=== PATIENT | female | born 1995 | race Caucasian/White ===

== ENCOUNTER 2022-07-20 07:33 | Inpatient (IN) ==
--- NOTE | 2022-07-20 08:38 | Obstetrical Progress Note ---
Date of Service July 20, 2022 Assessment & Plan (1) Irregular contractions: Plan monitor and recheck in a couple of hours. Not sure in labor at this point. fetus category one. Subjective Patient notes contractions since 1:30am. Notes since here may have spaced a bit. Notes some slight blood tinged d/c. no lof. Good fm. Physical Exam Physical Exam: cx--1-2/75/-2 toco--q3-6min efm--130s with mod variability, accels to 160s, no decels Results & Data ([facility]) Vital Signs (Past 12 Hours) Vital Signs Temp Pulse Resp BP 07/20/22 08:00 37 C 107 H 18 116/65 07/20/22 07:40 107 H 116/65 PG Care Time/CCT Total # of Minutes Spent Total Time Spent with Patient: Total time spent is greater than 50% in coordination of care (as documented) at patient's floor/unit and/or counseling patient: Coding Level of Care Code 01419 Office/Outpt Visit, Est Diagnoses Irregular contractions O47.9
[2022-07-20] MEDS ORDERED: LIDOCAINE 1% LOCAL 20 ML VIAL INFIL PRN (09:43)
[2022-07-20] MEDS ORDERED: OXYTOCIN 30 UNITS/500 ML BAG IV PRN ×2 (09:43→17:30)
--- NOTE | 2022-07-20 09:45 | History & Physical Report ---
Date of Service July 20, 2022 Assessment & Plan (1) with 39 completed weeks gestation: (2) SROM (spontaneous rupture of membranes): Plan admit, expectantly manage. pitocin if indicated. fetus category one. anticipate . History of Present Illness Chief Complaint: rom Primary Care Provider: ELMER Mota Patient carmelita [id number] with iup at 39 1/7 weeks who presents to labor and delivery with contractions. while monitoring, she underwent srom for ? thin mec. Notes good fm. and Delivery Plans has had covid vaccine and booster. Rubella jnt-jurxgw-memqs MRR PP OB Labs: Blood Type O Positive 12/20/21 Antibody Screen NEGATIVE 12/20/21 Hemoglobin 11.5 g/dl (12.0-16.0) L 05/03/22 Hematocrit 34.0 % (34.1-44.9) L 05/03/22 Mean Corpuscular Volume 82.9 fL (80-100) 12/20/21 Platelet Count 259 K/uL (130-400) 12/20/21 Rubella IgG Antibody Non Immune (Immune) L 12/20/21 Rapid Plasma Reagin Nonreactive (Nonreactive) 12/20/21 Hepatitis B Surface Antigen. NON-REACTIVE (NON-REACTIVE) 12/20/21 Hepatitis C Antibody (EIA) NON-REACTIVE (NON-REACTIVE) 12/20/21 HIV (1&2) Ag and Ab Confirmation NON-REACTIVE (NON-REACTIVE) 12/20/21 Glucose 1 Hour 50 gm Load 117 mg/dl (70-130) 05/03/22 OB Optional Labs: Chlamydia trachomatis RNA NOT DETECTED (NOT DETECTED) 12/20/21 Neisseria gonorrhoeae RNA NOT DETECTED (NOT DETECTED) 12/20/21 Labs Reviewed: cf/sma-negative--mln cfdna-low risk--mln GBS negative Allergies Allergy/AdvReac Type Severity Reaction Status Date / Time No Known Allergies Allergy Verified 07/20/22 08:00 Home Medications Medication Instructions Recorded Confirmed Type prenat.vits,cherelle,wxo-msxn-bubdm 1 tab PO QAM 07/14/21 07/20/22 History sertraline 25 mg tablet (Zoloft) 50 mg PO QPM 07/14/21 07/20/22 History Tums 500 mg PO Q6 PRN Heartburn 07/20/22 07/20/22 History Patient History Medical History Anxiety Atypical squamous cells of undetermined significance (ASCUS) on Papanicolaou smear of cervix Depression HPV (human papilloma virus) infection Swelling of vagina Varicella vaccination Surgical History History of wisdom tooth extraction Family History Grandfather (Paternal) Diabetes Grandfather (Maternal) Cancer unknown type Father Hypercholesteremia Other No family history of adverse response to anesthesia Denies family history of Ovarian cancer Prostate cancer Breast cancer Lung cancer Colorectal cancer Hypertension Uterine cancer Social History Smoking Status: Never smoker Second Hand Exposure: No; Hx Alcohol Use: Yes Alcohol type: beer, wine and hard liquor Hx Substance Use: No Preferred Language: Albanian Communication Ability: Effective Envelope Adjuster Required: No Beliefs That Will Affect Care: None marital status: marital status details: Parker Chen (26) [phone] Current Living Situation: Spouse Current Living Situation Comment: lives with FOB, dog current occupational status: employed 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 Feels Safe at Home: Yes Safety Concerns: Feels Safe At This Time Assistive Devices: None OB History G1--sab VASCULAR NURSE History noncontributory Physical Exam Constitutional: WD/WN, vitals as above Gastrointestinal (Abdomen): soft, gravid, nt Psychiatric: A+Ox3, euthymic affect Genitourinary: cx--/90/-2 sse--gross rupture, difficult to tell if some old blood or thin mec toco--q2-4min efm--130s wtih mod variability, accels to 150s, no decels Results & Data ([facility]) Vital Signs (Past 12 Hours) Vital Signs Temp Pulse Resp BP 07/20/22 08:00 37 C 107 H 18 116/65 07/20/22 07:40 107 H 116/65 Coding Level of Care Code None Diagnoses with 39 completed weeks gestation Z3A.39 SROM (spontaneous rupture of membranes)
[2022-07-20 09:59] LABS: Hemoglobin 12.1 g/dl (12.0-16.0); Mean Corpuscular Hemoglobin 28.3 pg (25.0-34.0); Mean Corpuscular Hgb Conc 33.6 g/dL (32.0-36.0); Mean Corpuscular Volume 84.1 fL (80.0-100.0); Mean Platelet Volume 10.2 fL (9.4-12.3); Platelet Count 225 K/uL (130-400); RDW Coefficient of Variation 13.2 % (11.5-14.5); RDW Standard Deviation 39.9 fL (36.4-46.3); Red Blood Count 4.28 M/uL (3.93-5.22); White Blood Count 13.46 K/ul (4.8-10.8)
[2022-07-20] MEDS: LACTATED RINGER'S 1,000 ML IV PRN ×2 (10:05→11:15)
[2022-07-20] MEDS ORDERED: ePHEDrine sulfate 50 MG/ML AMP ONE (10:57)
[2022-07-20] MEDS ORDERED: fentaNYL citrate 100 MCG/2 ML VIAL ONE (10:58)
[2022-07-20] MEDS ORDERED: BUPIVACAINE 0.25% 30 ML VIAL ONE (10:58)
[2022-07-20] MEDS ORDERED: SODIUM CHLORIDE 0.9% INJ 10 ML VIAL ONE (10:58)
[2022-07-20] MEDS ORDERED: fentaNYL 2MCG/ML ROPIVACAINE 1.25MG/ML 100 ML BAG EPI ONE (10:59)
[2022-07-20] MEDS ORDERED: ONDANSETRON INJ 2 MG/ML 2 ML VIAL IV PRN (11:21)
[2022-07-20] MEDS ORDERED: ePHEDrine sulfate 50 MG/ML AMP IV PRN (11:21)
[2022-07-20] MEDS ORDERED: fentaNYL 2MCG/ML ROPIVACAINE 1.25MG/ML 100 ML BAG EPI PRN (11:21)
[2022-07-20] MEDS ORDERED: diphenhydrAMINE 50 MG/ML VIAL IV PRN (11:21)
[2022-07-20] MEDS ORDERED: NALOXONE HCL 1 MG in SODIUM CHLORIDE 0.9% 1000ML 1,000 ML IV PRN (11:21)
[2022-07-20] MEDS ORDERED: NALOXONE HCL 0.4 MG/1 ML VIAL/CARP IV PRN (11:21)
[2022-07-20] MEDS ORDERED: NALBUPHINE HCL INJ 10 MG/ML AMP IV PRN (11:21)
--- NOTE | 2022-07-20 11:23 | Anesthesiology Consultation ---
Date of Service July 20, 2022 Assessment & Plan Chart Review Chart Review: Patient NOT seen in Pre Admission Testing and Acceptable Risk for Labor Epidural Consults Requested none ASA ASA2 Proposed Anesthesia Anesthesia Type: Labor Epidural and CSE Risk / Benefits Reviewed With: PT / POA / Parent / Guardian, Accepts Plan and Informed Consent Obtained History Height/Weight Height: 5 ft 11 in Weight: 94.055 kg Allergies Allergy/AdvReac Type Severity Reaction Status Date / Time No Known Allergies Allergy Verified 07/20/22 08:00 Medications Home Medications Medication Instructions Recorded Confirmed Last Taken prenat.vits,cherelle,pct-lzif-gzyxw 1 tab PO QAM 07/14/21 07/20/22 07/13/22 21:00 sertraline 25 mg tablet (Zoloft) 50 mg PO QPM 07/14/21 07/20/22 07/19/22 21:00 Tums 500 mg PO Q6 PRN Heartburn 07/20/22 07/20/22 07/19/22 21:00 Active Medications Generic Name Dose Route Start Last Admin Trade Name Freq PRN Reason Stop Dose Admin Lactated Ringer's 1,000 mls @ 125 mls/hr 07/20/22 09:43 07/20/22 10:05 Lr IV 07/22/22 09:42 999 mls/hr .Q8H PRN Administration L&D Protocol Protocol NPO Date Last Intake of Fluids: 07/20/22 Time Last Intake of Fluids: 09:30 Date Last Intake of Solids: 07/19/22 Time Last Intake of Solids: 20:00 Past Medical History Medical History Anxiety Atypical squamous cells of undetermined significance (ASCUS) on Papanicolaou smear of cervix Depression HPV (human papilloma virus) infection Swelling of vagina Varicella vaccination Exercise / Class Metabolic Activity II 4-5 Yardwork/Stairs/Walk up hill Past Family History Family History Grandfather (Paternal) Diabetes Grandfather (Maternal) Cancer unknown type Father Hypercholesteremia Other No family history of adverse response to anesthesia Denies family history of Ovarian cancer Prostate cancer Breast cancer Lung cancer Colorectal cancer Hypertension Uterine cancer Past Surgical History Surgical History History of wisdom tooth extraction Past Anesthesia History No Hx of Anesthesia Complications and No Family Hx of Anesthesia Complications History of PONV No Hx of PONV and No Hx of Motion Sickness Social History Smoking Status: Never smoker Hx Alcohol Use: Yes Alcohol type: beer, wine and hard liquor alcohol intake frequency: holidays/special occasions only Alcohol Intake Frequency Comment: No Alcohol use with . Hx Substance Use: No substance use type: does not use Review of Systems no chest pain or sob Physical Exam Vital Signs Last Vital Signs Temp 36.9 C 07/20/22 10:25 Pulse 84 07/20/22 11:19 Resp 16 07/20/22 10:25 BP 116/65 07/20/22 08:00 Pulse Ox 100 07/20/22 11:19 ENMT Mouth: no TMJ abnormality Thyromental Distance: > or= 3.5 Finger Breadths Mallampati Class: II Neck normal visual inspection Respiratory normal respiratory effort Auscultation: lungs clear to auscultation bilaterally Cardiovascular Rate/Rhythm: regular rate and regular rhythm Musculoskeletal Spine: normal cervical ROM Neurologic moves all extremities Psychiatric Orientation: alert and oriented x 3 Testing Laboratory Results 07/20/22 09:48
[2022-07-20] MEDS: LIDOCAINE 2%/EPINEPHRINE 1:200,000 20 ML SDV ONE ×2 (11:42→12:50)
--- NOTE | 2022-07-20 12:02 | Labor Progress Brief Note ---
Date of Service July 20, 2022 Subjective Got epidural. Comfortable. Assessment & Plan (1) SROM (spontaneous rupture of membranes): (2) with 39 completed weeks gestation: Plan continue current management. pit if indicated. fetus category one. anticipate . Admission and Anticipated Discharge Date Admission Date: July 20, 2022 Physical Exam Physical Exam: cx--4-5/90/-2 arom forebag, slight mec noted toco--q2-5min efm--130s wtih mod variability, accels present, +scalp stim. no decels Results & Data ([facility]) Vital Signs (Past 12 Hours) Vital Signs Temp Pulse Resp BP Pulse Ox 07/20/22 08:00 37 C 107 H 18 116/65 07/20/22 11:57 80 07/20/22 11:57 98/54 L 07/20/22 11:55 100 07/20/22 11:55 80 07/20/22 11:50 100 07/20/22 11:50 79 07/20/22 11:45 100 07/20/22 11:45 76 07/20/22 11:40 100 07/20/22 11:40 78 07/20/22 11:36 77 07/20/22 11:36 107/57 L 07/20/22 11:35 100 07/20/22 11:35 77 07/20/22 11:34 76 07/20/22 11:34 107/55 L 07/20/22 11:25 16 07/20/22 11:25 36.9 C 16 07/20/22 11:30 100 07/20/22 11:30 83 07/20/22 11:25 100 07/20/22 11:25 90 07/20/22 11:19 100 07/20/22 11:19 84 07/20/22 10:25 16 07/20/22 10:25 36.9 C 16 07/20/22 07:39 18 07/20/22 07:39 37.0 C 18 07/20/22 09:30 16 07/20/22 09:30 36.9 C 16 07/20/22 07:40 107 H 116/65 Coding Level of Care Code None Diagnoses SROM (spontaneous rupture of membranes) with 39 completed weeks gestation Z3A.39
[2022-07-20] MEDS ORDERED: NURSING L&D Epidural Breakthrough Pain Update ONE (13:32)
--- NOTE | 2022-07-20 15:00 | Labor Progress Brief Note ---
Date of Service July 20, 2022 Subjective comfortable Assessment & Plan (1) SROM (spontaneous rupture of membranes): (2) with 39 completed weeks gestation: Plan will labor down for 30-45 min. then start pushing. fetus category one for the most part. Admission and Anticipated Discharge Date Admission Date: July 20, 2022 Physical Exam Physical Exam: cx--c/c/+1 toco--q 2-3min efm--130s with mod variability, accels to 150s, rare variable Results & Data ([facility]) Vital Signs (Past 12 Hours) Vital Signs Temp Pulse Resp BP Pulse Ox 07/20/22 08:00 37 C 107 H 18 116/65 07/20/22 14:56 98 H 07/20/22 14:56 92/71 L 07/20/22 14:55 100 07/20/22 14:55 80 07/20/22 14:50 100 07/20/22 14:50 85 07/20/22 14:45 100 07/20/22 14:45 79 07/20/22 14:40 100 07/20/22 14:40 76 07/20/22 14:41 87 07/20/22 14:41 128/67 07/20/22 14:35 100 07/20/22 14:35 85 07/20/22 14:30 100 07/20/22 14:30 91 H 07/20/22 14:28 84 07/20/22 14:28 125/73 07/20/22 14:25 100 07/20/22 14:25 84 07/20/22 14:20 100 07/20/22 14:20 82 07/20/22 14:15 100 07/20/22 14:15 92 H 07/20/22 14:13 87 07/20/22 14:13 144/86 H 07/20/22 14:10 100 07/20/22 14:10 140 H 07/20/22 14:05 100 07/20/22 14:05 70 07/20/22 14:00 100 07/20/22 14:00 72 07/20/22 13:58 68 07/20/22 13:58 134/80 07/20/22 13:55 100 07/20/22 13:55 77 07/20/22 13:50 100 07/20/22 13:50 75 07/20/22 13:45 100 07/20/22 13:45 72 07/20/22 13:43 70 07/20/22 13:43 133/78 07/20/22 13:40 100 07/20/22 13:40 84 07/20/22 13:35 100 07/20/22 13:35 84 07/20/22 13:30 100 07/20/22 13:30 83 07/20/22 13:28 90 07/20/22 13:28 129/81 07/20/22 13:25 100 07/20/22 13:25 81 07/20/22 13:21 91 07/20/22 13:21 88 07/20/22 13:20 100 07/20/22 13:20 86 07/20/22 13:15 100 07/20/22 13:15 101 H 07/20/22 13:12 86 07/20/22 13:12 134/95 07/20/22 13:10 100 07/20/22 13:10 81 07/20/22 13:05 99 07/20/22 13:05 80 07/20/22 13:00 99 07/20/22 13:00 84 07/20/22 12:58 88 07/20/22 12:58 144/94 H 07/20/22 12:55 99 07/20/22 12:55 84 07/20/22 12:50 99 07/20/22 12:50 80 07/20/22 12:45 100 07/20/22 12:45 85 07/20/22 12:43 80 07/20/22 12:43 146/66 H 07/20/22 12:40 100 07/20/22 12:40 73 07/20/22 12:35 100 07/20/22 12:35 77 07/20/22 12:30 100 07/20/22 12:30 75 07/20/22 12:28 69 07/20/22 12:28 122/83 07/20/22 12:25 100 07/20/22 12:25 79 07/20/22 12:20 100 07/20/22 12:20 82 07/20/22 12:15 100 07/20/22 12:15 79 07/20/22 12:11 74 07/20/22 12:11 112/59 L 07/20/22 12:10 100 07/20/22 12:10 76 07/20/22 12:05 100 07/20/22 12:05 75 07/20/22 12:00 100 07/20/22 12:00 79 07/20/22 11:57 80 07/20/22 11:57 98/54 L 07/20/22 11:55 100 07/20/22 11:55 80 07/20/22 11:50 100 07/20/22 11:50 79 07/20/22 11:45 100 07/20/22 11:45 76 07/20/22 11:40 100 07/20/22 11:40 78 07/20/22 11:36 77 07/20/22 11:36 107/57 L 07/20/22 11:35 100 07/20/22 11:35 77 07/20/22 11:34 76 07/20/22 11:34 107/55 L 07/20/22 11:25 16 07/20/22 11:25 36.9 C 16 07/20/22 11:30 100 07/20/22 11:30 83 07/20/22 11:25 100 07/20/22 11:25 90 07/20/22 11:19 100 07/20/22 11:19 84 07/20/22 10:25 16 07/20/22 10:25 36.9 C 16 07/20/22 07:39 18 07/20/22 07:39 37.0 C 18 07/20/22 09:30 16 07/20/22 09:30 36.9 C 16 07/20/22 07:40 107 H 116/65 Coding Level of Care Code None Diagnoses SROM (spontaneous rupture of membranes) with 39 completed weeks gestation Z3A.39
[2022-07-20] MEDS ORDERED: bisacodyL 10 MG SUPP PR PRN (17:30)
[2022-07-20] MEDS ORDERED: ACETAMINOPHEN 325 MG TAB PO PRN (17:30)
[2022-07-20] MEDS ORDERED: HYDROCORTISONE ACETATE 25 MG SUPP PR PRN (17:30)
[2022-07-20] MEDS ORDERED: DIPHTHERIA/TETANUS/PERTUSSIS 0.5mL SYR/VIAL (Age 7+yrs) IM ONE (17:30)
[2022-07-20] MEDS ORDERED: BENZOCAINE 20% AER SPR 82.5 GM CAN EXT PRN (17:30)
--- NOTE | 2022-07-20 17:34 | Delivery Summary ---
Vaginal Delivery Summary Date of Service July 20, 2022 Vaginal Delivery Summary and 2nd Degree LAC Pre-operative Diagnosis: at 39 1/7 weeks srom labor meconium fluid Post-operative Diagnosis: same Procedure: epidural second degree and bilateral labial laceration and repair EBL: 400cc Anesthesia: epidural Procedure: The patient presented in early labor to labor and delivery. She underwent srom for thin mec fluid. She got uncomfortable and got an epidural. She progressed spontaneously to c/c/+1. The patient pushed for about 1hr 45 min to deliver a viable male infant in yoselin position. The nose and mouth were bulb suctioned on the perineum and the rest of the was then delivered without difficulty. The baby was vigorous. The nose and mouth were again bulb suctioned and the was placed in the maternal abdomen for drying and attention. Cord was clamped and cut at one minute of life. Cord blood and segment obtained. Placenta delivered spontaneous, intact with a three vessel cord. Cervix/sulci/rectum were intact. A second degree perineal laceration and bilateral labial repairs were repaired in the normal standard fashion. Hemostasis obtained with dilute pitocin and fundal massage. Apgars were 8/9. Mother and baby doing well at the end of the delivery. [facility] Vaginal Delivery Charge Delivery Type Details: and 2nd Degree LAC
--- NOTE | 2022-07-20 18:47 | Anesthesia Procedure Note ---
Date of Service July 20, 2022 Anesthesia Post Epidural Note Vital Signs Vital Signs: Temp Pulse Resp BP Pulse Ox 37.1 C 89 18 112/66 99 07/20/22 16:32 07/20/22 18:46 07/20/22 16:32 07/20/22 18:46 07/20/22 17:32 Notes Mental Status: alert / awake / arousable and participated in evaluation Nausea / Vomiting: adequately controlled Pain: adequately controlled Airway Patency, RR, SpO2: stable & adequate BP & HR: stable & adequate Hydration State: stable & adequate Neuraxial Anesthesia: was administered and sensory block is resolving Anesthetic Complications: no major complications apparent and Pt Satisfied with anesthetic care Epidural: Removed without complications and With tip intact
[2022-07-20] MEDS: DOCUSATE SODIUM 100 MG CAP PO SCH (20:10)
[2022-07-20] MEDS: IBUPROFEN 600 MG TAB PO PRN ×2 (20:10→23:37)
[2022-07-20] MEDS: SERTRALINE HCL 50 MG TABLET PO SCH (20:50)
[2022-07-21] MEDS: IBUPROFEN 600 MG TAB PO PRN ×5 (03:42→21:10)
--- NOTE | 2022-07-21 06:37 | Obstetrical Progress Note ---
Date of Service <Glenna Shipley MD - Last Filed: 07/21/22 07:42> July 21, 2022 Assessment & Plan <Glenna Shipley MD - Last Filed: 07/21/22 07:42> (1) care following vaginal delivery: Patient is a 26 y/o GBS neg, Rubella non-immune, Rh + with iup at 39 1/7 weeks who presented to labor and delivery with contractions now PPD1. Satisfactory post progress. Tolerating PO. Encourage ambulation. <Chaparrita Stallings MD, FACOG - Last Filed: 07/21/22 07:43> (1) care following vaginal delivery: Subjective <Glenna Shipley MD - Last Filed: 07/21/22 07:42> Ambulation: ambulating normally Voiding: no voiding problems Passing Gas:: Yes Diet Tolerance:: regular diet Lochia:: Small Feeding Type:: breast feeding Physical Exam <Glenna Shipley MD - Last Filed: 07/21/22 07:42> Constitutional WD/WN, vitals as above Respiratory normal respiratory effort, lungs clear to auscultation Cardiovascular RRR, no murmur, no edema Psychiatric A+Ox3, euthymic affect Genitourinary OB Exam Abdomen: + fundal height (@ level of the umbilicus) Fundus: + firm Results & Data ([facility]) <Glenna Shipley MD - Last Filed: 07/21/22 07:42> Vital Signs (Past 12 Hours) Vital Signs Temp Pulse Pulse Resp BP BP Pulse Ox 07/21/22 03:25 36.8 C 76 18 120/80 07/20/22 23:35 37 C 80 18 120/78 07/20/22 19:45 36.8 C 98 H 18 142/74 H 99 07/20/22 19:30 92 H 19 123/64 07/20/22 19:00 37.0 C 18 07/20/22 19:00 07/20/22 19:31 92 H 07/20/22 19:31 123/64 07/20/22 19:16 96 H 07/20/22 19:16 126/65 07/20/22 19:01 93 H 07/20/22 19:01 119/63 07/20/22 18:46 89 07/20/22 18:46 112/66 O2 Del Method 07/21/22 03:25 07/20/22 23:35 07/20/22 19:45 Room Air 07/20/22 19:30 07/20/22 19:00 07/20/22 19:00 Room Air 07/20/22 19:31 07/20/22 19:31 07/20/22 19:16 07/20/22 19:16 07/20/22 19:01 07/20/22 19:01 07/20/22 18:46 07/20/22 18:46 <Chaparrita Stallings MD, FACOG - Last Filed: 07/21/22 07:43> Co-Signing Physician Notes Resident Physician Supervision Note: I interviewed and examined the patient. Discussed with Dr. Shipley and agree with findings and plan as documented in the note. Any exceptions or clarifications are listed here: Doing well. Routine care. Documented By: Chaparrita Stallings MD, FACOG Resident Activity Tracking <Glenna Shipley MD - Last Filed: 07/21/22 07:42> Resident Involvement: Resident Care Provided Care Provided: OB Delivery
[2022-07-21 07:08] LABS: Hematocrit (blood only) 31.8 % (34.1-44.9); Hemoglobin 10.6 g/dl (12.0-16.0); Mean Corpuscular Hemoglobin 28.5 pg (25.0-34.0); Mean Corpuscular Hgb Conc 33.3 g/dL (32.0-36.0); Mean Corpuscular Volume 85.5 fL (80.0-100.0); Mean Platelet Volume 10.3 fL (9.4-12.3); Platelet Count 205 K/uL (130-400); RDW Coefficient of Variation 13.3 % (11.5-14.5); Red Blood Count 3.72 M/uL (3.93-5.22); White Blood Count 15.06 K/ul (4.8-10.8)
--- NOTE | 2022-07-21 08:07 | Medical Student Progress Note ---
Date of Service July 21, 2022 Assessment & Plan (1) care following vaginal delivery: Plan: Kylie Hernandez is a PPD1 26 year old female who presented on 07/20/22 for a SROM at 39w1d. Her vaginal delivery was complicated by a second degree perineal laceration and bilateral labial laceration. Of note, she has a history of ASCUS and HPV infection. 1. care following vaginal delivery * Overall, patient is doing well. Goals for today include pain control, wound care, and consultation. * Vital signs stable. Labs are trending appropriately. * Will plan on discharge tomorrow, 07/22/22. Admission and Anticipated Discharge Date Admission Date: July 20, 2022 Subjective Kylie Hernandez is a PPD1 26 year old female who presented on 07/20/22 for a SROM at 39w1d. Her vaginal delivery was complicated by a second degree perineal laceration and bilateral labial laceration. Of note, she has a history of ASCUS and HPV infection. There were no overnight events or patient concerns. Ambulation: Ambulating normally without leg pain. Voiding: No voiding problems. Passing Gas: Yes Diet Tolerance: Regular diet, has been eating and drinking without nausea, vomiting, or abdominal pain. Lochia: Small Feeding Type: Breast and bottle feeding. Physical Exam Constitutional: Generally well appearing, resting comfortably in bed. Respiratory: CTAB, no wheezing, rhonchi, or rales. Cardiovascular: RRR, no murmurs, rubs, or gallops appreciated. Gastrointestinal (Abdomen): No tenderness to palpation. Uterus is firm and approximately at the level of the umbilicus. Musculoskeletal: No lower extremity edema or tenderness. Results & Data ([facility]) Vital Signs (Past 12 Hours) Vital Signs Temp Pulse Resp BP 07/21/22 03:25 36.8 C 76 18 120/80 07/20/22 23:35 37 C 80 18 120/78 Laboratory Results Laboratory Results WBC 15.06 K/ul (4.8-10.8) H 07/21/22 06:45 RBC 3.72 M/uL (3.93-5.22) L 07/21/22 06:45 Hgb 10.6 g/dl (12.0-16.0) L 07/21/22 06:45 Hct 31.8 % (34.1-44.9) L 07/21/22 06:45 MCV 85.5 fL (80.0-100.0) 07/21/22 06:45 MCH 28.5 pg (25.0-34.0) 07/21/22 06:45 MCHC 33.3 g/dL (32.0-36.0) 07/21/22 06:45 RDW Std Deviation 41.0 fL (36.4-46.3) 07/21/22 06:45 RDW Coeff of Hedy 13.3 % (11.5-14.5) 07/21/22 06:45 Plt Count 205 K/uL (130-400) 07/21/22 06:45 MPV 10.3 fL (9.4-12.3) 07/21/22 06:45 SARS-CoV-2, RNA, NAAT NEGATIVE (NEGATIVE) 07/20/22 Unknown Medications Administered Home Medications prenat.vits,cherelle,psv-aqpq-joalx 1 tab PO QAM 07/14/21 [History Confirmed 07/20/22] sertraline 25 mg tablet (Zoloft) 50 mg PO QPM 07/14/21 [History Confirmed 07/20/22] Tums 500 mg PO Q6 PRN Heartburn 07/20/22 [History Confirmed 07/20/22] Active Medications Generic Name Dose Route Start Last Admin Trade Name Freq PRN Reason Stop Dose Admin Acetaminophen 650 mg 07/20/22 17:30 Acetaminophen 325 Mg Tab PO 08/19/22 17:29 Q6H PRN Pain/CRAWLEY/Fever Benzocaine 1 appln 07/20/22 17:30 07/20/22 19:28 Benzocaine 20% Aer Spr 82.5 Gm Can EXT 08/19/22 17:29 82.5 appln PRN PRN Administration Perineal Discomfort Bisacodyl 5 mg 07/21/22 20:00 Bisacodyl 5 Mg Tabec PO 07/21/22 20:01 2000 CATHLEEN Bisacodyl 10 mg 07/20/22 17:30 Bisacodyl 10 Mg Supp [place] 08/19/22 17:29 DAILY PRN No BM on 2nd post- day Diphenhydramine HCl 25 mg 07/20/22 11:21 Diphenhydramine 50 Mg/Ml Vial IV 07/21/22 11:20 Q6H PRN Itching Docusate Sodium 100 mg 07/20/22 21:00 07/20/22 20:10 Docusate Sodium 100 Mg Cap PO 08/19/22 20:59 100 mg DAILY@08,21 CATHLEEN Administration Ephedrine Sulfate 10 mg 07/20/22 11:21 Ephedrine Sulfate 50 Mg/Ml Amp IV 07/21/22 11:20 Q5M PRN Hypotension Hydrocortisone 25 mg 07/20/22 17:30 Hydrocortisone Acetate 25 Mg Supp [place] 08/19/22 17:29 BID PRN Hemorrhoidal Inflammation Lactated Ringer's 1,000 mls @ 125 mls/hr 07/20/22 09:43 07/20/22 11:15 Lr IV 07/22/22 09:42 125 mls/hr .Q8H PRN Administration L&D Protocol Protocol Oxytocin 30 units in 500 mls @ 333.333 mls/hr 07/20/22 09:43 07/20/22 17:20 Pitocin IV 08/19/22 09:42 59.94 units/hr .Q1H30M PRN 999 mls/hr Bleeding Control Administration Protocol 20 UNITS/HR Naloxone HCl 1 mg/ Sodium 1,002.5 mls @ 50 mls/hr 07/20/22 11:21 Chloride IV 07/21/22 11:20 .Q20H3M PRN itching or nausea Oxytocin 30 units in 500 mls @ 333.333 mls/hr 07/20/22 17:30 Pitocin IV 08/19/22 17:29 .Q1H30M PRN Bleeding Control Protocol 20 UNITS/HR Ibuprofen 600 mg 07/20/22 17:30 07/21/22 03:42 Ibuprofen 600 Mg Tab PO 08/19/22 17:29 600 mg Q4H PRN Administration Pain/CRAWLEY/Cramping/Fever Lidocaine HCl 20 ml 07/20/22 09:43 Lidocaine 1% Local 20 Ml Vial INFIL 08/19/22 09:42 ONCE PRN Perineal/vaginal Repair Nalbuphine HCl 5 mg 07/20/22 11:21 Nalbuphine Hcl Inj 10 Mg/Ml Amp IV 07/21/22 11:20 Q10M PRN itching or nausea Naloxone HCl 0.1 mg 07/20/22 11:21 Naloxone Hcl 0.4 Mg/1 Ml Vial/Carp IV 07/21/22 11:20 UD PRN Respiratory Depression Ondansetron HCl 4 mg 07/20/22 11:21 Ondansetron Inj 2 Mg/Ml 2 Ml Vial IV 07/21/22 11:20 Q6H PRN Nausea &/or Vomiting Prenat Multivit/[place]/Iron/Folic Ac 1 tab 07/21/22 08:00 Vitamin 1 Tab PO 08/20/22 07:59 DAILY@08 CATHLEEN Ropivacaine 100 ml 07/20/22 11:21 Fentanyl 2mcg/Ml Ropivacaine 1.25mg/Ml 100 Ml Bag EPI 07/21/22 11:20 PRN PRN Pain R/T Labor Protocol Sertraline HCl 50 mg 07/20/22 21:00 07/20/22 20:50 Sertraline Hcl 50 Mg Tablet PO 08/19/22 20:59 50 mg HS CATHLEEN Administration
[2022-07-21] MEDS: PRENATAL VITAMIN 1 TAB PO SCH (08:31)
[2022-07-21] MEDS: DOCUSATE SODIUM 100 MG CAP PO SCH ×2 (08:31→21:10)
[2022-07-21] MEDS ORDERED: bisacodyL 5 MG TABEC PO SCH (20:00)
[2022-07-21] MEDS: SERTRALINE HCL 50 MG TABLET PO SCH (21:10)
[2022-07-22] MEDS: IBUPROFEN 600 MG TAB PO PRN ×2 (01:35→05:16)
[2022-07-22 06:40] LABS: Hemoglobin 10.2 g/dl (12.0-16.0)
--- NOTE | 2022-07-22 06:58 | Obstetrical Progress Note ---
Date of Service <Glenna Shipley MD - Last Filed: 07/22/22 07:14> July 22, 2022 Assessment & Plan <Glenna Shipley MD - Last Filed: 07/22/22 07:14> (1) care following vaginal delivery: Patient is a 26 y/o GBS neg, Rubella non-immune, Rh + with iup at 39 1/7 weeks who presented to labor and delivery with contractions now PPD2. Satisfactory post progress. Tolerating PO. Encourage ambulation. MS3 Sierra Alondra took the history and contributed to this note. <Niya Silva MD, FACOG - Last Filed: 07/22/22 08:44> (1) care following vaginal delivery: Subjective <Glenna Shipley MD - Last Filed: 07/22/22 07:14> Ambulation: ambulating normally Voiding: no voiding problems Passing Gas:: Yes Diet Tolerance:: regular diet Lochia:: Small Feeding Type:: bottle feeding Physical Exam <Glenna Shipley MD - Last Filed: 07/22/22 07:14> Constitutional WD/WN, vitals as above Generally well appearing, resting comfortably in bed. Respiratory CTAB, no wheezing, rhonchi, or rales. Cardiovascular RRR, no murmurs, rubs, or gallops appreciated. Gastrointestinal (Abdomen) No tenderness to palpation. Uterus is firm and approximately at the level of the umbilicus. Musculoskeletal No lower extremity edema or tenderness. Results & Data ([facility]) <Glenna Shipley MD - Last Filed: 07/22/22 07:14> Vital Signs (Past 12 Hours) Vital Signs Temp Pulse Resp BP Pulse Ox O2 Del Method 07/21/22 23:20 36.6 C 79 20 115/76 98 Room Air 07/21/22 20:00 36.5 C 92 H 20 114/72 98 Room Air <Niya Silva MD, FACOG - Last Filed: 07/22/22 08:44> Co-Signing Physician Notes Resident Physician Supervision Note: I was present with Dr. Shipley during the history and exam. I discussed the case with the resident and agree with the findings and plan as documented in the note. Any exceptions or clarifications are listed here: stable doing well, ready for d/c home, instructions reviewed. f/u 6 wk pp. abd soft ff 2down, nt, nt calves. Documented By: Niya Silva MD, FACOG Resident Activity Tracking <Glenna Shipley MD - Last Filed: 07/22/22 07:14> Resident Involvement: Resident Care Provided Care Provided: OB Delivery
[2022-07-22] MEDS: PRENATAL VITAMIN 1 TAB PO SCH (08:26)
[2022-07-22] MEDS: DOCUSATE SODIUM 100 MG CAP PO SCH (08:26)
[2022-07-22] MEDS ORDERED: MEASLES, MUMPS & RUBELLA VIRUS VIAL SQ ONE (08:31)
== END 2022-07-22 10:47 | disposition home or self-care (01) | DRG 807 ==
LOC: OPB 07:33 → 4S1 07:35 → 4E2 19:45